=== PATIENT | male | born 1940 | race Caucasian/White ===

== ENCOUNTER 2023-05-11 14:00 | Inpatient (IN) | payer MEDICARE, OTHER ==
[~2023-05-11] VITALS: Ht 162.6 cm; Wt 76.5 kg
[2023-05-11] MEDS ORDERED: OCTREOTIDE ACETATE 500 MCG in SODIUM CHLORIDE 0.9% 97.5 ML IV SCH (14:45)
[2023-05-11] MEDS ORDERED: PANTOPRAZOLE SODIUM 80 MG in SODIUM CHLORIDE 0.9% 100 ML IV SCH (14:45)
[2023-05-11 15:42] LABS: BASOPHILS % (AUTO) 0.8 % (0.0-2.0); HEMATOCRIT 34.9 % (41-53); HEMOGLOBIN 11.5 g/dL (13.5-17.5); LYMPHOCYTES # (AUTO) 0.8 K/uL (1.0-4.8); LYMPHOCYTES % (AUTO) 11.1 % (22.0-44.0); MEAN CORPUSCULAR HEMOGLOBIN 28.5 pg (26.0-34.0); MEAN CORPUSCULAR HGB CONC 32.8 G/dL (31.0-37.0); MEAN CORPUSCULAR VOLUME 87 fL (80-100); MONOCYTES # (AUTO) 0.4 K/uL (0.1-1.0); MONOCYTES % (AUTO) 6.3 % (2.0-9.0); NEUTROPHILS # (AUTO) 5.7 K/uL (1.8-7.7); NEUTROPHILS % (AUTO) 80.8 % (40.0-70.0); PLATELET COUNT (AUTO) 98 K/uL (150-450); RED BLOOD CELL COUNT(AUTO) 4.03 MIL/uL (4.50-5.90); RED CELL DISTRIBUTION WIDTH 15.2 % (11.5-14.5)
[2023-05-11 15:50] LABS: INR 1.1 (0.9-1.1); PROTHROMBIN TIME 11.1 SEC (9.4-11.6)
[2023-05-11 15:53] LABS: CREATININE 2.16 mg/dL (0.60-1.30); POTASSIUM 4.2 mmol/L (3.5-5.1)
[2023-05-11 15:54] LABS: ALBUMIN 3.3 g/dL (3.4-5.0); BILIRUBIN,TOTAL 0.9 mg/dL (0.1-1.0); TOTAL PROTEIN, SERUM 7.2 g/dL (6.4-8.2)
[2023-05-11] MEDS ORDERED: 0.9% SODIUM CHLORIDE 10 ML SYRINGE IVP PRN ×2 (16:30→18:30)
[2023-05-11] MEDS ORDERED: ONDANSETRON HCL 4 MG/2 ML VIAL IVP PRN ×2 (16:30→18:30)
[2023-05-11] MEDS ORDERED: ACETAMINOPHEN 325 MG TABLET PO PRN (16:30)
[2023-05-11] MEDS: PANTOPRAZOLE SODIUM 40 MG/VIAL IVP SCH (18:30)
[2023-05-11] MEDS ORDERED: HydrALAZINE HCL 20 MG/ML VIAL IVP PRN (18:45)
[2023-05-11 21:15] VITALS: BP 173/77; PULSE 64; RESP 18; TEMP 97.8
[2023-05-12] VITALS (7 sets, daily range): BP systolic 145–197; BP diastolic 52–76; PULSE 59–72; RESP 18–20; TEMP 97.6–98.6
[2023-05-12 00:46] LABS: GLUCOMETER DEV NAME(LOC) 5N.1C
[2023-05-12 07:10] LABS: BASOPHILS % (AUTO) 0.8 % (0.0-2.0); HEMATOCRIT 32.4 % (41-53); HEMOGLOBIN 11.1 g/dL (13.5-17.5); LYMPHOCYTES # (AUTO) 0.8 K/uL (1.0-4.8); LYMPHOCYTES % (AUTO) 12.7 % (22.0-44.0); MEAN CORPUSCULAR HEMOGLOBIN 29.5 pg (26.0-34.0); MEAN CORPUSCULAR HGB CONC 34.1 G/dL (31.0-37.0); MEAN CORPUSCULAR VOLUME 87 fL (80-100); MONOCYTES # (AUTO) 0.5 K/uL (0.1-1.0); MONOCYTES % (AUTO) 7.1 % (2.0-9.0); NEUTROPHILS # (AUTO) 5.2 K/uL (1.8-7.7); NEUTROPHILS % (AUTO) 78.4 % (40.0-70.0); PLATELET COUNT (AUTO) 96 K/uL (150-450); RED BLOOD CELL COUNT(AUTO) 3.75 MIL/uL (4.50-5.90); RED CELL DISTRIBUTION WIDTH 15.2 % (11.5-14.5)
[2023-05-12 07:22] LABS: CALCIUM, TOTAL 8.8 mg/dL (8.8-10.5); CREATININE 2.06 mg/dL (0.60-1.30); POTASSIUM 4.1 mmol/L (3.5-5.1)
[2023-05-12] MEDS: PANTOPRAZOLE SODIUM 40 MG/VIAL IVP SCH (08:43)
[2023-05-12] MEDS ORDERED: SODIUM CHLORIDE 0.9% 1,000 ML ONE (11:20)
[2023-05-12] MEDS ORDERED: PROPOFOL 1% 20 ML VIAL IVP ONE (12:00)
[2023-05-12] MEDS ORDERED: LIDOCAINE/PF 2% 5 ML VIAL IM ONE (12:00)
[2023-05-12] MEDS ORDERED: PANT-31 PO (12:57)
[2023-05-12] MEDS ORDERED: ACET-2247 PO (13:25)
[2023-05-12] MEDS ORDERED: ATOR40TA28 PO (13:26)
[2023-05-12] MEDS ORDERED: CLOP75TA60 PO (13:27)
[2023-05-12] MEDS ORDERED: CARV25 PO (13:27)
[2023-05-12] MEDS ORDERED: ERGO500054 PO (13:28)
[2023-05-12] MEDS ORDERED: DOCU-385 PO (13:28)
[2023-05-12] MEDS ORDERED: FERR325T27 PO (13:29)
[2023-05-12] MEDS ORDERED: FINA-27 PO (13:30)
[2023-05-12] MEDS ORDERED: FURO20 PO (13:30)
[2023-05-12] MEDS ORDERED: HYDR25TA84 PO (13:31)
[2023-05-12] MEDS ORDERED: GLIP5TAB12 PO (13:31)
[2023-05-12] MEDS ORDERED: NIFE-46 PO (13:32)
[2023-05-12] MEDS ORDERED: OLME20TA73 PO (13:34)
[2023-05-12] MEDS ORDERED: OMEP20 PO (13:35)
[2023-05-12] MEDS ORDERED: TAMS-13 PO (13:35)
[2023-05-12] MEDS ORDERED: DULA4.5P SQ (13:39)
[2023-05-12] MEDS ORDERED: MECL-160 PO (13:40)
[2023-05-12] MEDS ORDERED: LORA10TA7 PO (13:42)
[2023-05-12] MEDS ORDERED: SODIUM CHLORIDE 0.9% 1,000 ML IV ONE (14:00)
== END 2023-05-12 18:30 | disposition home or self-care (01) | DRG 378 ==
LOC: EMS 14:14 → 5S 18:23 → EMS 20:28
PROVIDERS: ADMIT Internal Medicine; ATTEND Internal Medicine
PROC: 0DB78ZX Excision of Stomach, Pylorus, Via Natural or Artificial Opening Endoscopic, Diagnostic (ICD-10-PCS; principal; 2023-05-12 15:00)
DX: K29.71 Gastritis, unspecified, with bleeding (principal); D62 Acute posthemorrhagic anemia; E44.0 Moderate protein-calorie malnutrition; I13.0 Hypertensive heart and chronic kidney disease with heart failure and stage 1 through stage 4 chronic kidney disease, or unspecified chronic kidney disease; N17.9 Acute kidney failure, unspecified; N18.9 Chronic kidney disease, unspecified; E11.65 Type 2 diabetes mellitus with hyperglycemia; J44.9 Chronic obstructive pulmonary disease, unspecified; I50.9 Heart failure, unspecified; E11.22 Type 2 diabetes mellitus with diabetic chronic kidney disease; I25.10 Atherosclerotic heart disease of native coronary artery without angina pectoris; Z68.28 Body mass index [BMI] 28.0-28.9, adult; Z79.02 Long term (current) use of antithrombotics/antiplatelets; Z95.5 Presence of coronary angioplasty implant and graft; I25.2 Old myocardial infarction
CPT/HCPCS: 80048; 80053; 82962; 83690; 83880; 84484; 85025; 85610; 85730; 86850; 86900; 86901; 87081; 93005; 99285; C9113; G0378; J0360; J2354; J2704; J3490; J7030; J7050